=== PATIENT | female | born 1930 | race Caucasian/White ===

== ENCOUNTER 2019-02-08 15:48 | Emergency (ER) | payer MEDICARE, OTHER ==
[~2019-02-08] VITALS: Ht 167.6 cm; Wt 86.2 kg
[2019-02-08] MEDS ORDERED: IV NORMAL SALINE 500 ML BAG IV ONE (16:15)
--- NOTE | 2019-02-08 16:15 | NUR ---
Dr. Ortez here to see pt for MSE.
[2019-02-08] MEDS ORDERED: SUMA50TA PO (16:22)
[2019-02-08] MEDS ORDERED: MAGN400O6 PO (16:22)
[2019-02-08] MEDS ORDERED: NAPR220T66 PO (16:22)
[2019-02-08] MEDS ORDERED: DEXT15DR6 OP (16:22)
[2019-02-08] MEDS ORDERED: ONDA4TAB5 PO (16:22)
[2019-02-08] MEDS ORDERED: ACET325T53 PO (16:22)
[2019-02-08 16:31] LABS: BASOPHILS # (AUTO) 0.1 K/uL (0.0-8.0); BASOPHILS % (AUTO) 1.3 % (0.0-2.0); EOSINOPHILS # (AUTO) 0.5 K/uL (0.0-0.7); EOSINOPHILS % (AUTO) 5.9 % (0.0-7.0); HEMATOCRIT 37.4 % (31.2-41.9); HEMOGLOBIN 11.7 g/dL (10.9-14.3); LYMPHOCYTES # (AUTO) 2.4 K/uL (20.0-40.0); LYMPHOCYTES % (AUTO) 27.2 % (20.5-51.5); MEAN CORPUSCULAR HEMOGLOBIN 30.4 uug (24.7-32.8); MEAN CORPUSCULAR HGB CONC 31 g/dL (32.3-35.6); MEAN CORPUSCULAR VOLUME 97.2 fL (75.5-95.3); MONOCYTES # (AUTO) 0.5 K/uL (2.0-10.0); MONOCYTES % (AUTO) 5.4 % (0.0-11.0); NEUTROPHILS # (AUTO) 5.3 K/uL (1.8-8.9); NEUTROPHILS % (AUTO) 60.2 % (38.5-71.5); PLATELET COUNT (AUTO) 262 K/uL (179-408); RED BLOOD CELL COUNT(AUTO) 3.84 MIL/uL (3.63-4.92); WHITE BLOOD COUNT (AUTO) 8.8 K/uL (3.8-11.8)
[2019-02-08 16:52] LABS: CREATININE 0.9 mg/dL (0.6-1.3); POTASSIUM 3.8 mmol/L (3.5-5.1)
[2019-02-08 16:56] LABS: BILIRUBIN,DIRECT 0.1 mg/dL (0.0-0.2); BILIRUBIN,TOTAL 0.3 mg/dL (0.2-1.0); TOTAL PROTEIN, SERUM 7.3 g/dL (6.4-8.2)
[2019-02-08] MEDS ORDERED: FUROSEMIDE 40 MG/4 ML VIAL ONE (17:12)
[2019-02-08] MEDS ORDERED: FUROSEMIDE 40 MG/4 ML VIAL IV ONE (17:15)
--- NOTE | 2019-02-08 17:38 | NUR ---
[facility]ed [facility] and will be here to pick-up pt for discharge [id number].
[2019-02-08] MEDS ORDERED: IBUPROFEN 600 MG TABLET ONE (18:38)
[2019-02-08] MEDS ORDERED: IBUPROFEN 600 MG TABLET PO ONE (18:45)
--- NOTE | 2019-02-08 19:03 | NUR ---
Ambulance here to pepper picker pt for discharge. Full SBAR report given to ambulance. VSS wnl. Pt stable and nad noted upon leaving the ER.
== END 2019-02-08 19:09 | disposition home or self-care (01) ==
LOC: ER 15:48
DX: I50.9 Heart failure, unspecified (principal); F32.9 Major depressive disorder, single episode, unspecified; F41.9 Anxiety disorder, unspecified; Z88.8 Allergy status to other drugs, medicaments and biological substances; Z79.899 Other long term (current) drug therapy
CPT/HCPCS: 36415; 71045; 80048; 80076; 83605; 83880; 84145; 84484; 85025; 87040; 87400; 93005; 96374; 99284; J1940; 70030-TC; A4663; J7040